=== PATIENT | male | born 1955 | race Caucasian/White ===

== ENCOUNTER 2018-03-02 08:09 | Emergency (ER) | payer BC, OTHER ==
[~2018-03-02] VITALS: Ht 172.7 cm; Wt 104.6 kg
[~2018-03-02 08:09] MED LIST: FOLI1TAB16 PO; LOSA50TA7 PO; METH2.5T PO; RANI150T2 PO
[2018-03-02] MEDS: ONDANSETRON ODT 4 MG TAB.RAPDIS PO ONE (08:39)
[2018-03-02] MEDS: MORPHINE SULFATE 10 MG/ML SYRINGE. IM ONE (08:40)
[2018-03-02] MEDS ORDERED: OXYC-323 PO (08:54)
[2018-03-02] MEDS ORDERED: CYCL-331 PO (08:54)
[2018-03-02 09:00] VITALS: BP 118/86
--- NOTE | 2018-03-02 09:15 | RAD ---
Right shoulder 3 views. HISTORY: Fall, right shoulder pain 3 views were taken of the right shoulder. There is not evidence of an acute fracture or dislocation or osseous abnormality. IMPRESSION: 1. Negative right shoulder. Electronically signed by: Heath Brito MD (03/02/2018 9:11 AM) [facility]
--- NOTE | 2018-03-02 09:36 | RAD ---
Right RIBS with PA chest. HISTORY: Fell, right rib pain PA view was taken of the chest. Lungs are clear. Heart is normal in size without heart failure. There is no effusion. AP and oblique views were taken of the right ribs. There is no rib fracture or acute osseous abnormality. IMPRESSION: 1. No acute chest disease. 2. No right rib fracture noted. Electronically signed by: Heath Brito MD (03/02/2018 9:33 AM) [facility]
--- NOTE | 2018-03-02 15:15 | ED.ADGEN ---
Past History Past Medical History: Hypertension Past Surgical History: Tonsillectomy Alcohol Use: Occasionally Drug Use: None Adult General Chief Complaint Chief Complaint Upper back, right shoulder pain HPI HPI Patient is a 62-year-old male with history of chronic back pain presents with right upper thoracic/right shoulder pain after sliding off and inversion table last night while site down. Patient landed on a carpeted floor. He is not on anticoagulation therapy. Pain reproduces palpation and movement. Denies flank pain, spine tenderness. No extremity weakness or loss of sensation. No other acute symptoms or complaints.[] Review of Systems Review of Systems Review symptoms as per history of present illness. All other review symptoms are negative. All other systems were reviewed and found to be within normal limits, except as documented in this note. Current Medications Current Medications Current Medications Medications (Trade) Dose Ordered Sig/Jose Start Time Stop Time Status Last Admin Dose Admin Morphine Sulfate (Morphine 10mg Syringe) 10 mg 1X ONCE 03/02/18 08:45 03/02/18 08:46 DC 03/02/18 08:40 10 MG Ondansetron HCl (Zofran Odt) 4 mg 1X ONCE 03/02/18 08:45 03/02/18 08:46 DC 03/02/18 08:39 4 MG Allergies Allergies Allergies Coded Allergies Type Severity Reaction Last Updated Verified bee venom protein (honey bee) Allergy Unknown 03/02/18 Yes Physical Exam Physical Exam Constitutional: Well developed, well nourished, no acute distress, non-toxic appearance. [] HENT: Normocephalic, atraumatic, bilateral external ears normal, oropharynx moist, no oral exudates, nose normal. [] Eyes: PERRLA, EOMI, conjunctiva normal, no discharge. [] Neck: Normal range of motion, no tenderness, supple, no stridor. [] Cardiovascular:Heart rate regular rhythm, no murmur [] Lungs & Thorax: Bilateral breath sounds clear to auscultation [] Abdomen: Bowel sounds normal, soft, no tenderness, no masses, no pulsatile masses. [] Skin: Warm, dry, no erythema, no rash. [] Back: No line spinal tenderness, right upper thoracic paravertebral pain, tenderness, no crepitus, subcutaneous emphysema, right scapular pain, tendernes. [] Extremities: Shoulder, no deformity bruising or swelling, and pain with range of motion.[] Neurologic: Alert and oriented X 3, normal motor function, normal sensory function, no focal deficits noted. [] Psychologic: Affect normal, judgement normal, mood normal. [] Current Patient Data Vital Signs Vital Signs Date Time Temp Pulse Resp B/P (MAP) Pulse Ox O2 Delivery O2 Flow Rate FiO2 03/02/18 09:00 62 18 118/86 (97) 97 Room Air 03/02/18 08:10 97.6 EKG EKG [] Radiology/Procedures Radiology/Procedures [Shoulder/right rib series with PA chest: No obvious displaced fractures per radiology report] Course & Med Decision Making Course & Med Decision Making Pertinent Labs and Imaging studies reviewed. (See chart for details) [Pain medications given. Recommend supportive care with PCP follow-up for further management. Return precautions reviewed.] Final Impression Final Impression [#1 right shoulder injury #2 back injury] Dragon Disclaimer Dragon Disclaimer This electronic medical record was generated, in whole or in part, using a voice recognition dictation system. TRISTIN STEWART DO Mar 02, 2018 15:15
== END 2018-03-02 09:03 | disposition home or self-care (01) ==
LOC: ER 08:09
DX: S49.81XA Other specified injuries of right shoulder and upper arm, initial encounter (principal); S29.8XXA Other specified injuries of thorax, initial encounter; R07.81 Pleurodynia; G89.29 Other chronic pain; I10 Essential (primary) hypertension; Z91.030 Bee allergy status; W08.XXXA Fall from other furniture, initial encounter; Y93.89 Activity, other specified; Y92.89 Other specified places as the place of occurrence of the external cause; Y99.8 Other external cause status
CPT/HCPCS: 71101; 73030; 96372; 99284; J2270; Q0162

== ENCOUNTER → 2020-11-21 | Outpatient (CLI) | payer OTHER ==
[~2020-11-21] MED LIST changes: +CYCL-331 PO; -LOSA50TA7 PO; +LOSA50TA86 PO; +OXYC1TAB15 PO
--- NOTE | 2020-11-21 12:27 | RAD ---
EXAM: CT Head without IV contrast CLINICAL HISTORY: Reason: vertigo / Spl. Instructions: / History: COMPARISON: None. TECHNIQUE: Routine CT of the head without contrast. PQRS compliance statement - One or more of the following individualized dose reduction techniques wer e utilized for this study: 1. Automated exposure control 2. Adjustment of the mA and/or kV according to patient size 3. Use of iterative reconstruction technique FINDINGS: There is no evidence of hemorrhage, mass or extra-axial fluid collection. Montoya-white differentiation is maintained with no evidence of edema. Subcortical and periventricular f oci of hypoattenuation likely changes of chronic small vessel disease. There is no mass effect or shift of the intracranial structures. The ventricles, basilar cisterns and cortical sulci are normal in size and configuration for the matt ents stated age. The cerebellum and brainstem are unremarkable. The calvarium demonstrates no evidence of fracture or focal lesion. Patchy opacification of the scattered ethmoid air cells and right frontal sinus likely sinusitis. Oth erwise there is normal aeration of the visualized paranasal sinuses and mastoid air cells. The visualized portions of the orbits are normal. Atherosclerotic calcifications of the intracranial internal carotid and vertebral arteries is seen. IMPRESSION: 1. No evidence for acute intracranial process. 2. White matter changes likely chronic small vessel disease. 3. Patchy right frontal and ethmoid air cell opacification likely sinusitis. Electronically signed by: Glen Vasquez MD (11/21/2020 12:25 PM) [id number]
== END ==
LOC: CT 12:01
PROVIDERS: ATTEND Nurse Practitioner Family
DX: R42 Dizziness and giddiness (principal)
CPT/HCPCS: 70450